=== PATIENT | male | born 1990 | race Caucasian/White ===

== ENCOUNTER → 2020-11-11 14:26 | Outpatient (CLI) | payer OTHER, SELFPAY ==
[2020-11-11 16:46] LABS: COVID19 -Nasal RAPID Negative (Negative)
== END ==
PROVIDERS: Visit Provider Physician Assistant
DX: Z01.812 Encounter for preprocedural laboratory examination (principal); Z20.822 Contact with and (suspected) exposure to COVID-19
CPT/HCPCS: 87635

== ENCOUNTER 2020-11-14 10:27 | Day surgery (SDC) | payer OTHER, SELFPAY ==
[2020-11-12 14:54] VITALS: BMI 29.9
[2020-11-14] VITALS (10 sets, daily range): BP systolic 110–133; BP diastolic 62–83; PULSE 55–74; RESP 11–14; TEMP 36.4–36.7; O2SAT 96–100; BMI 29.9
[2020-11-14] MEDS: OXYMETAZOLINE NASAL SPRAY 15 ML 2 SPRAYS NASAL ×2 (11:34→12:48)
[2020-11-14] MEDS: LACTATED RINGERS 1,000 ML 42 ML IV (11:34)
--- NOTE | 2020-11-14 11:35 | PM.PREOP ---
Pre-operative Note COVID-19 COVID-19 status: Negative Interval Note History & Physical reviewed/Exam performed by Physician: Yes Changes to H&P: No
--- NOTE | 2020-11-14 11:36 | PM.HP.1 ---
History of Present Illness History of Present Illness Date Patient Seen: 11/14/20 Time Patient Seen: 11:36 Chief complaint: Nasal obstruction Narrative: 30-year-old male complains of chronic nasal obstruction, known left septal deviation with inferior turbinate hypertrophy, using fullface CPAP. Last seen in clinic 09/23/2020, no interval changes, no recent cough, cold, or fever. With failure of medical therapy, wants to proceed with septoplasty and bilateral inferior turbinate reduction. Patient History Medical History Nasal septal deviation Nasal turbinate hypertrophy JUAN on CPAP Surgical History History of lumpectomy of right breast (2008) Hx of endoscopy Family & Social History Social History: household members spouse Tobacco & Substance use: Tobacco type e-cigarettes Smoking Status Former smoker alcohol intake current alcohol intake frequency 0-2 drinks per day Substance Use Type does not use Meds Home Medications and Allergies Home Medications Medication Instructions Recorded Confirmed Type No Known Home Medications 11/14/20 11/14/20 History Allergies Allergy/AdvReac Type Severity Reaction Status Date / Time No Known Drug Allergies Allergy Verified 11/14/20 11:01 Review of Systems Review of Systems ROS: Yes All systems reviewed with the patient and are negative except as otherwise documented Exam Vital Signs (past 8 hours): - 11/14/20 11:17 Temperature 97.8 F Pulse Rate 55 L Respiratory Rate 13 Blood Pressure 110/70 Pulse Oximetry 100 Oxygen Delivery Method Room Air Narrative Exam Narrative: Well-developed well-nourished stocky male in no acute distress. Heart regular rate and rhythm without murmur, lungs clear to auscultation bilaterally Assessment & Plan Assessment & Plan narrative: Assessment: 1. Nasal obstruction 2. Septal deviation 3. Inferior turbinate hypertrophy 4. JUAN Plan: Following discussion of the material risks benefits complications and alternatives, the patient elected to proceed with septoplasty and bilateral inferior turbinate reduction via intramural cautery.
--- NOTE | 2020-11-14 11:38 | PM.OP.1 ---
Operative Date/Time/Diagnoses Date of procedure: 11/14/20 Time of procedure: 13:29 Pre-op diagnosis: Nasal airway obstruction, septal deviation, inferior turbinate hypertrophy, JUAN Post-op diagnosis: same Procedure & Clinicians Procedure: 1. Septoplasty 2. Inferior turbinate reduction via intramural cautery Same procedure as scheduled: Yes Indications: 30-year-old male with the above diagnoses incompletely managed with medical therapy presents for the above procedures. Following discussion of the material risks benefits complications and alternatives, he elected to proceed. Surgeon: Pierre Sánchez Click Yes if Unassisted: Yes Anesthesia Type: General and Local Operative Notes Findings: 1+ RIGHT caudal deviation, 2+ left septal deviation, RIGHT posterior spur resected, mild to moderate inferior turbinate hypertrophy Closure Type: primary Estimated Blood Loss (mL): 50 Blood products transfused: none Procedure in detail: Following identification and confirmation of consent as well as preoperative Afrin nasal spray, the patient was brought to the operating room suite and placed in the supine position. General endotracheal anesthesia was administered. I infiltrated the septum widely bilaterally with 1% lidocaine 1 100,000 epinephrine followed by temporary packing with cotton with Afrin and 4% lidocaine. Following sterile prep and drape, the packing was removed and I performed a right ron-transfixion incision, elevated the right mucoperichondrial and mucoperiosteal flap. I disarticulated near the bony/cartilaginous junction and elevated the left mucoperiosteal flap. Deviated portions of the perpendicular plate of the ethmoid and vomer were resected, including a thick RIGHT posterior bony spur. The residual quadrilateral cartilage was further straightened by trimming it inferiorly as well as reducing the maxillary crest. A 2 mm strip of cartilage paralleling the residual 1 cm dorsal and caudal strut was resected to further straighten the quadrilateral cartilage. The hemitransfixion incision was closed with interrupted 5 0 chromic followed by a running 4 0 plain gut mattress suture to reapproximate the septal flaps. At case completion, Luu silastic splints were placed bilaterally, sutured anteriorly with a single 4 0 nylon. The head of each inferior turbinate had been previously infiltrated with additional local anesthetic and a 25 gauge spinal needle was used to impale the length of the turbinate, with cautery on a setting of 15 activated on slow withdrawal. The turbinates were then outfractured. The procedure completed, sponge and needle counts were correct and the patient was extubated in the operating room and taken to recovery room in stable condition without known complication. Postoperative care: Nasal saline every hour while awake, Vaseline or Polysporin to the nostrils at all times, begin irrigations t.i.d. beginning pod 1. Humidifier at the bedside blowing on the face. Tylenol alternating with Advil for pain control, oxycodone if necessary for breakthrough pain. Complications: none Post-operative Condition: stable Disposition: same day surgery Plan for aftercare: Nasal saline every hour while awake, begin irrigations t.i.d. tomorrow if desired. Ice as tolerated to upper lip, nasal dorsum. Polysporin to the nostrils at all times, Tylenol alternating with Advil for pain control, oxycodone for breakthrough pain. Elevate head of bed, no nose blowing, no straining for 2 weeks. Follow-up in 1 week for nasal splint removal. Use CPAP at all times while asleep.
--- NOTE | 2020-11-14 12:44 | SUR.OPER ---
Supine on padded OR bed, head on pillow, arm padded and tucked at side, legs uncrossed, safety belt at thigh, tape over blanket over lower legs .
[2020-11-14] MEDS: LIDOCAINE 1% W/EPI 20 ML INJ (12:47)
[2020-11-14] MEDS: LIDOCAINE 4% SOLN 50 ML 20 ML TOP (12:48)
== END 2020-11-14 14:45 | disposition home or self-care (01) ==
PROVIDERS: PCP Family Medicine; Referring Provider Otolaryngology; Visit Provider Otolaryngology
PROC: (CPT 30520; principal; 2020-11-14 11:45)
DX: J34.2 Deviated nasal septum (principal); J34.89 Other specified disorders of nose and nasal sinuses; J34.3 Hypertrophy of nasal turbinates; G47.33 Obstructive sleep apnea (adult) (pediatric)
CPT/HCPCS: 30520; 30802; J1100; J2250; J2405; J2704; J3010